=== PATIENT | female | born 1970 ===

== ENCOUNTER 2016-10-24 12:10 | Emergency (ER) | payer MEDICAID ==
[2016-10-24 12:23] VITALS: O2SAT 100
[2016-10-24] MEDS ORDERED: Bacitracin 500 Units/gm Oint Foilpak UD TOP ONE (12:33)
[2016-10-24] MEDS ORDERED: Bacitracin 500 Units/gm Oint Foilpak UD ONE (12:54)
--- NOTE | 2016-10-24 13:10 | C.PDOC ---
History Of Present Illness 46 yr old female presents to the ER for pain to the left hand for 1 day. Patient states she was playing with her dog when she pulled her hand away and hit it against the wall. Reports of a abrasion to the 4th knuckle and reports hitting her pinky. Patient reports of pain to the entire hand due to the carpal tunnel syndrome. Patient denies arm pain, shoulder pain, back pain, weakness or numbness. Time Seen by Provider: 10/24/16 12:58 Chief Complaint (Nursing): Upper Extremity Problem/Injury History Per: Patient History/Exam Limitations: no limitations Onset/Duration Of Symptoms: Days (1) Current Symptoms Are (Timing): Still Present Past Medical History Reviewed: Historical Data, Nursing Documentation, Vital Signs Vital Signs: Last Vital Signs Temp 97.3 F L 10/24/16 12:22 Pulse 80 10/24/16 12:22 Resp 16 10/24/16 12:22 BP 193/133 H 10/24/16 12:22 Pulse Ox 100 10/24/16 13:25 - Medical History PMH: Anxiety, Arthritis, Asthma, Back Problems (sciatica), Depression, Fractures (left foot fracture 2007), Gastritis, HTN, Pneumonia, Rheumatoid Arthritis - [facility] Procedures ANESTH INJECT-SPIN CANAL (06/13/14) ESOPHAGOGASTRODUODENOSCOPY [EGD] W/CLOSED BIOPSY (01/11/15) INJECT STEROID (11/16/14) OTH REMOVE BOTH OVARIES/TUBES (11/06/12) OTHER AND UNSPECIFIED TOTAL ABDOMINAL HYSTERECTOMY (11/06/12) PACKED CELL TRANSFUSION (11/06/12) PLATELET TRANSFUSION (11/06/12) SPINAL CANAL INJECT NEC (11/16/14) Family History: States: No Known Family Hx - Social History Hx Tobacco Use: No Hx Alcohol Use: No (socially) Hx Substance Use: Yes (marijuana) - Immunization History Hx Tetanus Toxoid Vaccination: No Hx Influenza Vaccination: No Hx Pneumococcal Vaccination: Yes Review Of Systems Except As Marked, All Systems Reviewed And Found Negative. Musculoskeletal: Positive for: Hand Pain (Left hand pain. Abrasion to the 4th knuckle. ). Negative for: Shoulder Pain, Arm Pain, Back Pain Neurological: Negative for: Weakness, Numbness Physical Exam - Physical Exam Appears: Well, Non-toxic, No Acute Distress Skin: Warm, Dry Head: Atraumatic, Normacephalic Oral Mucosa: Moist Chest: Symmetrical, No Tenderness Cardiovascular: Rhythm Regular, No Murmur Extremity: Swelling (Left Hand - Swelling to the 5th finger), Other (Left Hand - Abrasion to the PIP of 4th digit. ) Neurological/Psych: Oriented x3, Normal Speech, Normal Motor ED Course And Treatment O2 Sat by Pulse Oximetry: 100 - Other Rad X-Ray - Left Hand X-Ray: Viewed By Me, Read By Radiologist Interpretation: PROCEDURE: Left Hand Radiographs. HISTORY: Contusion. COMPARISON: None available. FINDINGS: BONES: Acute displaced fracture deformity of the proximal aspect distal 5th phalanx with intra-articular extension. Well corticated small rounded ossific density likely related to remote ulna styloid fracture. Remainder of the visualized osseous structures appear intact. JOINTS: No dislocation. SOFT TISSUES: Soft tissue swelling. No evidence of radiopaque foreign body. OTHER FINDINGS: None. IMPRESSION: Soft tissue swelling. Acute displaced fracture deformity of the proximal aspect distal 5th phalanx with intra-articular extension. Well corticated small rounded ossific density likely related to remote ulna styloid fracture. Medical Decision Making Medical Decision Making: PLAN: * X-Ray - Left Hand * Bacitracin TOP * Motrin PO * Tylenol PO Disposition Counseled Patient/Family Regarding: Studies Performed, Diagnosis, Need For Followup, Rx Given - Disposition Referrals: [facility] [Outside] Disposition: HOME/ ROUTINE Disposition Time: 13:23 Condition: STABLE Prescriptions: Ibuprofen [Motrin] 600 mg PO TID #15 tab Instructions: Finger Fracture (ED) Forms: General Discharge Instructions - POA Present On Arrival: None - Clinical Impression Clinical Impression: Finger fracture - Scribe Statement The provider has reviewed the documentation as recorded by the Giovanniibe Nikkie Pope Provider Attestation: All medical record entries made by the Giovanniibe were at my direction and personally dictated by me. I have reviewed the chart and agree that the record accurately reflects my personal performance of the history, physical exam, medical decision making, and the department course for this patient. I have also personally directed, reviewed, and agree with the discharge instructions and disposition.
--- NOTE | 2016-10-24 13:18 | RAD ---
PROCEDURE: Left Hand Radiographs. HISTORY: Contusion COMPARISON: None available. FINDINGS: BONES: Acute displaced fracture deformity of the proximal aspect distal 5th phalanx with intra-articular extension. Well corticated small rounded ossific density likely related to remote ulna styloid fracture. Remainder of the visualized osseous structures appear intact. JOINTS: No dislocation. SOFT TISSUES: Soft tissue swelling. No evidence of radiopaque foreign body. OTHER FINDINGS: None. IMPRESSION: Soft tissue swelling. Acute displaced fracture deformity of the proximal aspect distal 5th phalanx with intra-articular extension. Well corticated small rounded ossific density likely related to remote ulna styloid fracture.
[2016-10-24 13:59] VITALS: BP 172/105; PULSE 85; RESP 18; TEMP 99
== END 2016-10-24 13:59 | disposition home or self-care (01) ==
LOC: C.ER 12:10
DX: S62.617A Displaced fracture of proximal phalanx of left little finger, initial encounter for closed fracture (principal); W22.8XXA Striking against or struck by other objects, initial encounter

== ENCOUNTER 2017-01-08 08:30 | Emergency (ER) | payer MEDICAID, OTHER ==
[2017-01-08 08:49] VITALS: TEMP 98.6
--- NOTE | 2017-01-08 10:15 | C.PDOC ---
History Of Present Illness 46-year-old female, PMHx includes Anxiety, Arthritis, Asthma, Back Problems ( sciatica), Depression, Fractures (left foot fracture 2007), Gastritis, HTN, Hypercholesterolemia, Migraine, Pneumonia, and Rheumatoid Arthritis, presents to the emergency department with complaints of anterior chest wall pain to right side. Patient states she was mopping her house two days ago, which she believes may have been the cause of pain. Denies nausea/vomiting, fevers, chills , numbness/weakness, or any other associated symptoms. No other complaints at this time. Time Seen by Provider: 01/08/17 08:44 Chief Complaint (Nursing): Pain, Chronic History Per: Patient History/Exam Limitations: no limitations Onset/Duration Of Symptoms: Days Current Symptoms Are (Timing): Still Present Severity: Moderate Past Medical History Reviewed: Historical Data, Nursing Documentation, Vital Signs Vital Signs: Last Vital Signs Temp 98.6 F 01/08/17 08:38 Pulse 57 L 01/08/17 13:21 Resp 20 01/08/17 13:21 BP 143/54 L 01/08/17 13:21 Pulse Ox 100 01/08/17 13:21 - Medical History PMH: Anxiety, Arthritis, Asthma, Back Problems (sciatica), Depression, Fractures (left foot fracture 2007), Gastritis, HTN, Hypercholesterolemia, Migraine, Pneumonia, Rheumatoid Arthritis - [facility] Procedures ANESTH INJECT-SPIN CANAL (06/13/14) ESOPHAGOGASTRODUODENOSCOPY [EGD] W/CLOSED BIOPSY (01/11/15) INJECT STEROID (11/16/14) OTH REMOVE BOTH OVARIES/TUBES (11/06/12) OTHER AND UNSPECIFIED TOTAL ABDOMINAL HYSTERECTOMY (11/06/12) PACKED CELL TRANSFUSION (11/06/12) PLATELET TRANSFUSION (11/06/12) SPINAL CANAL INJECT NEC (11/16/14) Family History: States: No Known Family Hx - Social History Hx Tobacco Use: No Hx Alcohol Use: No (socially) Hx Substance Use: Yes (marijuana) - Immunization History Hx Tetanus Toxoid Vaccination: No Hx Influenza Vaccination: No Hx Pneumococcal Vaccination: Yes Review Of Systems Except As Marked, All Systems Reviewed And Found Negative. Constitutional: Negative for: Fever Cardiovascular: Positive for: Chest Pain. Negative for: Palpitations Respiratory: Negative for: Shortness of Breath Gastrointestinal: Positive for: Nausea Musculoskeletal: Negative for: Neck Pain, Back Pain Neurological: Negative for: Weakness, Numbness, Headache, Dizziness Psych: Positive for: Anxiety Physical Exam - Physical Exam Appears: Non-toxic, No Acute Distress, Other (appears anxious, tearful.) Skin: Warm, Dry, No Rash Head: Atraumatic, Normacephalic Eye(s): bilateral: Normal Inspection, PERRL, EOMI Nose: Normal Oral Mucosa: Moist Lips: Normal Appearing Neck: Normal ROM Chest: Tenderness (anterior right chest wall) Cardiovascular: Rhythm Regular, No Murmur Respiratory: Normal Breath Sounds, No Accessory Muscle Use Gastrointestinal/Abdominal: Soft, No Tenderness Extremity: Normal ROM Neurological/Psych: Oriented x3, Normal Speech ED Course And Treatment O2 Sat by Pulse Oximetry: 98 Disposition Counseled Patient/Family Regarding: Studies Performed, Diagnosis, Need For Followup, Rx Given - Disposition Disposition: HOME/ ROUTINE Disposition Time: 14:17 Condition: FAIR Additional Instructions: Use warm compresses to affected area. Take medications as indicated. Follow up with your doctor as needed. Prescriptions: Ibuprofen [Motrin] 600 mg PO TID #15 tab traMADol/Acetaminophen [Ultracet 37.5/325 mg] 1 tab PO TID PRN #15 tab PRN Reason: pain Instructions: Chest Wall Pain (ED) Forms: General Discharge Instructions - POA Present On Arrival: None - Clinical Impression Clinical Impression: Acute chest wall pain - Scribe Statement The provider has reviewed the documentation as recorded by the Scribe (Shellie Mcduffie) All medical record entries made by the Scribe were at my direction and personally dictated by me. I have reviewed the chart and agree that the record accurately reflects my personal performance of the history, physical exam, medical decision making, and the department course for this patient. I have also personally directed, reviewed, and agree with the discharge instructions and disposition.
--- NOTE | 2017-01-08 10:17 | RAD ---
HISTORY: pain COMPARISON: Chest x-ray performed 02/15/16 TECHNIQUE: Chest, one view. FINDINGS: Examination limited by habitus, patient obliquity, and hypoinflation. LUNGS: No focal consolidation. Please note that chest x-ray has limited sensitivity for the detection of pulmonary masses. PLEURA: No significant pleural effusion identified. No definite pneumothorax . CARDIOVASCULAR: The cardiomediastinal silhouette appears within normal limits of size. OSSEOUS STRUCTURES: No acute osseous abnormality identified. VISUALIZED UPPER ABDOMEN: Unremarkable. OTHER FINDINGS: None. IMPRESSION: No focal consolidation, significant pleural effusion, or definite pneumothorax identified.
[2017-01-08 13:22] VITALS: BP 143/54; PULSE 57; RESP 20
[2017-01-08 14:20] VITALS: O2SAT 98
--- NOTE | 2017-01-10 07:10 | CARD ---
APPROVED REPORT EKG Measurement Heart [id number] <Conclusion> Normal sinus rhythm Nonspecific T wave abnormality Abnormal ECG
== END 2017-01-08 14:36 | disposition home or self-care (01) ==
LOC: C.ER 08:30
DX: R07.89 Other chest pain (principal)

== ENCOUNTER 2017-03-24 10:34 | Emergency (ER) | payer MEDICAID, OTHER ==
[2017-03-24 11:32] VITALS: O2SAT 99
[2017-03-24] MEDS ORDERED: Belladonna-Phenobarbital PO STA (11:32)
[2017-03-24] MEDS ORDERED: Sodium Chloride 0.9% 1,000 ML IV ONE (11:32)
[2017-03-24] MEDS ORDERED: Belladonna-Phenobarbital ONE (11:41)
[2017-03-24 11:42] LABS: BASO % 0.6 % (0.0-2.0); EOS # 0.4 K/uL (0.0-0.7); EOS % 6.7 % (0.0-4.0); HEMATOCRIT 42.8 % (34.0-47.0); LYMPH % 18.2 % (20.0-40.0); MEAN CELL VOLUME 80.3 fL (81.0-99.0); MEAN CORPUSCULAR HEMOGLOBIN 26.5 pg (27.0-31.0); MONO # 0.4 K/uL (0.0-0.8); MONO % 8.2 % (0.0-10.0); RED CELL DISTRIBUTION WIDTH 16.1 % (11.5-14.5); WHITE BLOOD COUNT 5.5 K/uL (4.8-10.8)
[2017-03-24] MEDS ORDERED: Aluminum Hydroxide/Magnesium Hydroxide Susp (30 mL) ONE (11:42)
[2017-03-24 12:09] LABS: ALB/GLOB RATIO 1.3 (1.0-2.1); BILIRUBIN,TOTAL 0.7 mg/dL (0.2-1.3); CALCIUM 9.6 mg/dl (8.6-10.4); POTASSIUM 3.3 mmol/L (3.6-5.2); TOTAL PROTEIN 7.2 g/dL (6.3-8.3)
--- NOTE | 2017-03-24 12:26 | C.PDOC ---
History Of Present Illness 47 y/o female with Hx of HTN, Asthma, Sciatica and Anxiety presents to ED with complaints of vomiting for 2 days and nausea with associated vomiting and back pain. Patient also complaints of headache, mild cough and reports x6 episodes of vomiting today. Patient denies fever, dysuria, frequency, incontinence or any other complaints at this time. PMD Time Seen by Provider: 03/24/17 11:26 Chief Complaint (Nursing): Dizziness/Lightheaded History Per: Patient History/Exam Limitations: no limitations Onset/Duration Of Symptoms: Days Current Symptoms Are (Timing): Still Present Past Medical History Reviewed: Historical Data, Nursing Documentation, Vital Signs Vital Signs: Last Vital Signs Temp 98.3 F 03/24/17 11:10 Pulse 58 L 03/24/17 14:10 Resp 18 03/24/17 14:10 BP 201/111 H 03/24/17 14:10 Pulse Ox 99 03/24/17 14:10 - Medical History PMH: Anxiety, Arthritis, Asthma, Back Problems (sciatica), Depression, Fractures (left foot fracture 2007), Gastritis, HTN, Hypercholesterolemia, Migraine, Pneumonia, Rheumatoid Arthritis Surgical History: No Surg Hx - [facility] Procedures ANESTH INJECT-SPIN CANAL (06/13/14) ESOPHAGOGASTRODUODENOSCOPY [EGD] W/CLOSED BIOPSY (01/11/15) INJECT STEROID (11/16/14) OTH REMOVE BOTH OVARIES/TUBES (11/06/12) OTHER AND UNSPECIFIED TOTAL ABDOMINAL HYSTERECTOMY (11/06/12) PACKED CELL TRANSFUSION (11/06/12) PLATELET TRANSFUSION (11/06/12) SPINAL CANAL INJECT NEC (11/16/14) Family History: States: No Known Family Hx - Social History Hx Tobacco Use: No Hx Alcohol Use: No (socially) Hx Substance Use: Yes (marijuana) - Immunization History Hx Tetanus Toxoid Vaccination: No Hx Influenza Vaccination: No Hx Pneumococcal Vaccination: Yes Review Of Systems Except As Marked, All Systems Reviewed And Found Negative. Constitutional: Positive for: Chills. Negative for: Fever Respiratory: Positive for: Cough Gastrointestinal: Positive for: Nausea, Vomiting Musculoskeletal: Positive for: Back Pain Skin: Negative for: Rash Neurological: Positive for: Headache Physical Exam - Physical Exam Appears: Non-toxic, Other (Anxious, Hyperventilating) Skin: Normal Color, Warm, Dry, No Rash Head: Atraumatic, Normacephalic Eye(s): bilateral: Normal Inspection Oral Mucosa: Moist Neck: Normal ROM, Supple Chest: Symmetrical Cardiovascular: Rhythm Regular, No Murmur Respiratory: Normal Breath Sounds, No Rales, No Rhonchi, No Wheezing Gastrointestinal/Abdominal: Tenderness (To RUQ), No Guarding, No Rebound Back: No CVA Tenderness, No Paraspinal Tenderness Neurological/Psych: Oriented x3 ED Course And Treatment - Laboratory Results Result Diagrams: 03/24/17 11:37 03/24/17 11:37 ECG: Interpreted By Me, Viewed By Me ECG Rhythm: Sinus Rhythm, Nonspecific Changes ECG Interpretation: Normal Rate From EC (bpm) O2 Sat by Pulse Oximetry: 99 (RA) Pulse Ox Interpretation: Normal Medical Decision Making Medical Decision Making: Patient still hypertensive, no head ache, no dizziness. Pain is better, no vomiting, tolerating PO, requesting discharge. Disposition - Disposition Referrals: [facility] [Outside] Disposition: HOME/ ROUTINE Disposition Time: 15:32 Condition: IMPROVED Prescriptions: Ondansetron [Zofran Odt] 1 odt PO BID PRN #6 odt PRN Reason: .nausea vomiting Instructions: Gastritis (ED) Forms: General Discharge Instructions - POA Present On Arrival: None - Clinical Impression Clinical Impression: Gastritis - Scribe Statement The provider has reviewed the documentation as recorded by the Scriblenny Espinoza All medical record entries made by the Scribe were at my direction and personally dictated by me. I have reviewed the chart and agree that the record accurately reflects my personal performance of the history, physical exam, medical decision making, and the department course for this patient. I have also personally directed, reviewed, and agree with the discharge instructions and disposition.
[2017-03-24] MEDS: Aluminum Hydroxide/Magnesium Hydroxide Susp (30 mL) PO STA ×2 (12:44→12:45)
--- NOTE | 2017-03-24 13:24 | US ---
Right upper quadrant abdominal ultrasound History: Abdominal pain. Vomiting. Comparison: None available. Technique: Real-time sonography was performed through the right upper quadrant of the abdomen. Findings: Liver: 14.7 centimeters in length. Normal echogenicity of the hepatic parenchyma. Gallbladder appears preserved. No calculi or sludge. Normal wall thickness of 2 millimeters. Negative sonographic Dixon's sign. Common bile duct measures 4.2 millimeters, within normal limits. Visualized portions of the pancreas are preserved. Pancreatic tail not well visualized. Visualized aorta and IVC are preserved. Right kidney: 10.1 x 4.0 x 4.4 centimeters. Mild increased echogenicity of the right renal cortex suggestive for medical renal disease. No calculi or hydronephrosis. Impression: Mild increased echogenicity of the right renal parenchymal cortex suggestive for medical renal disease. Clinical correlation. Limited visualization of the pancreas.
--- NOTE | 2017-03-24 13:25 | RAD ---
PROCEDURE: CHEST RADIOGRAPH, 1 VIEW HISTORY: Abdominal pain COMPARISON: 01/08/2017 FINDINGS: LUNGS: Clear. PLEURA: No pneumothorax or pleural fluid seen. CARDIOVASCULAR: Normal. OSSEOUS STRUCTURES: No significant abnormalities. VISUALIZED UPPER ABDOMEN: Normal. OTHER FINDINGS: None. IMPRESSION: No active disease.
[2017-03-24 13:30] LABS: RBC URINE 7 /hpf (0-3); URINE BACTERIA RARE (<OCC); URINE BILIRUBIN NEGATIVE (NEGATIVE); URINE BLOOD 1+ (NEGATIVE); URINE COLOR Yellow (YELLOW); URINE GLUCOSE (UA) NORMAL (Normal); URINE KETONE 1+ mg/dL (NEGATIVE); URINE LEUKOCYTE ESTERASE 1+ Leu/uL (Negative); URINE PROTEIN 2+ mg/dL (NEGATIVE); URINE UROBILINOGEN NORMAL mg/dL (0.2-1.0); WBC URINE 5 /hpf (0-5)
[2017-03-24] MEDS ORDERED: Lidocaine 5% Patch TD STA (14:37)
[2017-03-24] MEDS ORDERED: Lidocaine 5% Patch TD ONE (14:45)
[2017-03-24 15:37] VITALS: BP 200/110; PULSE 56; RESP 22; TEMP 98.1
--- NOTE | 2017-03-25 14:53 | CARD ---
APPROVED REPORT EKG Measurement Heart [id number] HI [id number] <Conclusion> Normal sinus rhythm Nonspecific ST and T wave abnormality Abnormal ECG
== END 2017-03-24 15:56 | disposition home or self-care (01) ==
LOC: C.ER 10:34
DX: K29.70 Gastritis, unspecified, without bleeding (principal); I10 Essential (primary) hypertension; E78.00 Pure hypercholesterolemia, unspecified; F17.210 Nicotine dependence, cigarettes, uncomplicated
CPT/HCPCS: 71010; 76705; 80053; 80324; 80345; 80346; 80349; 80353; 80358; 80361; 81001; 83992; 84703; 85025; 93005; 96361; 96374; 96375; 99285; J1885; J2405; J7040

== ENCOUNTER 2017-12-06 07:24 | Emergency (ER) | payer MEDICAID, OTHER ==
[2017-12-06 08:12] LABS: BASO # 0.1 K/uL (0.0-0.2); EOS # 0.5 K/uL (0.0-0.7); EOS % 8.7 % (0.0-4.0); LYMPH # 1.3 K/uL (1.0-4.3); LYMPH % 20.7 % (20.0-40.0); MEAN CELL VOLUME 81.6 fL (81.0-99.0); MEAN CORPUSCULAR HEMOGLOBIN 27.6 pg (27.0-31.0); MEAN CORPUSCULAR HGB CONC 33.8 g/dL (33.0-37.0); MEAN PLATELET VOLUME 10.7 fL (7.2-11.7); MONO # 0.4 K/uL (0.0-0.8); MONO % 5.9 % (0.0-10.0); NEUT # 3.9 K/uL (1.8-7.0); NEUT % 63.7 % (50.0-75.0); NRBC % 0.2 % (0.0-2.0); RBC 4.58 Mil/uL (3.80-5.20); RED CELL DISTRIBUTION WIDTH 14.4 % (11.5-14.5); WHITE BLOOD COUNT 6.2 K/uL (4.8-10.8)
[2017-12-06 08:18] LABS: HEMOGLOBIN 12.6 g/dL (11.0-16.0)
--- NOTE | 2017-12-06 08:21 | RAD ---
Chest x-ray single frontal view History: Chest pain. Comparison: 03/24/2017 Findings: Mild venous congestion. Small nodular density in right midlung zone laterally. Bilateral hilar prominence. Tortuous aorta. Top normal heart size. Degenerative changes in the spine and shoulders. Impression: Mild venous congestion. Small nodular density in right midlung zone laterally. Bilateral hilar prominence. Tortuous aorta. Top normal heart size.
[2017-12-06 08:24] LABS: BLOOD UREA NITROGEN 22 mg/dL (7-17); CALCIUM 8.8 mg/dl (8.6-10.4); GFR AFRICAN-AMERICAN 59; GFR NON-AFRICAN AMERICAN 48
[2017-12-06 08:37] LABS: B-TYPE NATRIURETIC PEPTIDE 283 pg/mL (0-450)
[2017-12-06] MEDS ORDERED: Lidocaine 5% Patch TD STA (08:54)
[2017-12-06] MEDS ORDERED: Lidocaine 5% Patch TD ONE (09:00)
--- NOTE | 2017-12-06 09:18 | C.PDOC ---
History Of Present Illness 47 y/o female with a history of HTN, anxiety, and asthma presents to the ED for left arm and left sided chest pain. Patient reports the pain began 3 days ago getting progressively worse. She denies taking any pain medications but did use marijuana. She complains the pain is worse with movement and when she takes deep breaths. Last night she couldn't sleep and felt a pulling inside the left part of her chest. EMS gave Nitro prior to ED arrival. Denies any nausea, vomiting, fever, chills, abdominal pain, constipation, or SOB. Of note, patient is s/p stroke with left sided deficit and a history of chronic pain. She was on Percocet for many years. Denies taking it recently at this time. Patient also states she had a herniated disc in neck and back. PMD: Dr. Morales Time Seen by Provider: 12/06/17 07:36 Chief Complaint (Nursing): Chest Pain History Per: Patient History/Exam Limitations: no limitations Onset/Duration Of Symptoms: Days (x3) Current Symptoms Are (Timing): Still Present Quality: "Pain" Recent travel outside of the [place]: No Past Medical History Vital Signs: Last Vital Signs Temp 98.2 F 12/06/17 17:16 Pulse 70 12/06/17 17:16 Resp 18 12/06/17 17:16 BP 172/106 H 12/06/17 17:16 Pulse Ox 100 12/06/17 17:16 - Medical History PMH: Anxiety, Arthritis, Asthma, Back Problems (sciatica), Depression, Fractures (left foot fracture 2007), Gastritis, HTN, Hypercholesterolemia, Migraine, Pneumonia, Rheumatoid Arthritis Denies: Anemia, Diabetes, Hepatitis, Chronic Kidney Disease, Sexually Transmitted Disease Other PMH: sciatica Surgical History: Denies: Appendectomy, Cholecystectomy - [facility] Procedures ANESTH INJECT-SPIN CANAL (06/13/14) ESOPHAGOGASTRODUODENOSCOPY [EGD] W/CLOSED BIOPSY (01/11/15) INJECT STEROID (11/16/14) OTH REMOVE BOTH OVARIES/TUBES (11/06/12) OTHER AND UNSPECIFIED TOTAL ABDOMINAL HYSTERECTOMY (11/06/12) PACKED CELL TRANSFUSION (11/06/12) PLATELET TRANSFUSION (11/06/12) SPINAL CANAL INJECT NEC (11/16/14) Family History: States: Unknown Family Hx - Social History Hx Tobacco Use: Yes Hx Alcohol Use: No (socially) Hx Substance Use: Yes (marijuana) - Immunization History Hx Tetanus Toxoid Vaccination: No Hx Influenza Vaccination: No Hx Pneumococcal Vaccination: Yes Review Of Systems Except As Marked, All Systems Reviewed And Found Negative. Constitutional: Negative for: Fever, Chills Cardiovascular: Positive for: Chest Pain Respiratory: Negative for: Shortness of Breath Gastrointestinal: Negative for: Nausea, Vomiting, Abdominal Pain, Constipation Musculoskeletal: Positive for: Arm Pain (left) Physical Exam - Physical Exam Appears: Non-toxic, No Acute Distress (tearful and anxious appearing) Skin: Normal Color, Warm, Dry Head: Atraumatic, Normacephalic Eye(s): bilateral: Normal Inspection, PERRL, EOMI Neck: Normal Chest: Other (reproducable chest wall pain) Cardiovascular: Rhythm Regular, No Murmur Respiratory: Normal Breath Sounds Gastrointestinal/Abdominal: Normal Exam, Soft, No Tenderness, No Distention Back: Normal Inspection Extremity: Tenderness (pain to the left upper extremity with movement), No Pedal Edema Neurological/Psych: Oriented x3 ED Course And Treatment - Laboratory Results Result Diagrams: 12/06/17 08:09 12/06/17 08:09 ECG: Interpreted By Me, Viewed By Me ECG Rhythm: Sinus Rhythm (normal) Interpretation Of ECG: normal sinus rhythm, [address] elevations or depressions Rate From EC O2 Sat by Pulse Oximetry: 99 (RA) Pulse Ox Interpretation: Normal Medical Decision Making Medical Decision Making: Time: 07:31 Impression: Anxiety/Chest Pain/Possibly musculoskeletal Initial Plan: * EKG * Drug Screen * Tylenol 975 mg PO * Motrin 600 mg PO * Lidocaine 1 ea TD * Ativan 1 mg PO once * Cozaar 50mg PO * Urinalysis * B-Type Natriuretic * BMP * Troponin I Stat * CBC * Chest X-Ray * Patient refused pain medication in the ED, accepted ativan for anxiety. Patient slept comfortably. Persistently hypertensive. Not compliant with her BP meds. Feeling better, will d/c Scribe Attestation: Documented by Anaya Nice acting as a scribe Sujatha Campa MD. MD Mena Attestation: All medical record entries made by the Scribe were at my direction and personally dictated by me. I have reviewed the chart and agree that the record accurately reflects my personal performance of the history, physical exam, medical decision making, and the department course for this patient. I have also personally directed, reviewed, and agree with the discharge instructions and disposition. Disposition Counseled Patient/Family Regarding: Studies Performed, Diagnosis - Disposition Referrals: [facility] at [facility] [Outside] Disposition: HOME/ ROUTINE Disposition Time: 17:07 Condition: IMPROVED Instructions: High Blood Pressure in Adults, Low Salt Diet Forms: [facility] (Irish), General Discharge Instructions - POA Present On Arrival: Blood Incompatibility - Clinical Impression Clinical Impression: Pain of left side of body, Hypertension
[2017-12-06 09:32] LABS: SQUAMOUS EPITHIAL < 1 /hpf (0-5); URINE BILIRUBIN NEGATIVE (NEGATIVE); URINE BLOOD 1+ (NEGATIVE); URINE CLARITY Clear (Clear); URINE COLOR Yellow (YELLOW); URINE GLUCOSE (UA) NORMAL (Normal); URINE LEUKOCYTE ESTERASE NEG Leu/uL (Negative); URINE PROTEIN NEGATIVE (NEGATIVE); URINE UROBILINOGEN NORMAL mg/dL (0.2-1.0)
[2017-12-06 09:46] LABS: BARBITURATES, UR NEGATIVE (NEGATIVE); BENZODIAZEPINES, UR NEGATIVE (NEGATIVE); OPIATES, UR NEGATIVE (NEGATIVE); PHENCYCLIDINE, UR NEGATIVE (NEGATIVE)
[2017-12-06 16:01] VITALS: RESP 18
[2017-12-06 17:17] VITALS: BP 172/106; PULSE 70; TEMP 98.2
[2017-12-06 18:22] VITALS: O2SAT 99
--- NOTE | 2017-12-09 13:45 | CARD ---
APPROVED REPORT EKG Measurement Heart [id number] <Conclusion> Normal sinus rhythm Nonspecific T wave abnormality Abnormal ECG
== END 2017-12-06 18:00 | disposition home or self-care (01) ==
LOC: C.ER 07:24
DX: I10 Essential (primary) hypertension (principal); R52 Pain, unspecified; E78.00 Pure hypercholesterolemia, unspecified; M06.9 Rheumatoid arthritis, unspecified; Z72.0 Tobacco use
CPT/HCPCS: 71045; 80048; 80324; 80345; 80346; 80349; 80353; 80358; 80361; 81001; 83880; 83992; 84484; 85025; 96374; 99285; J0360

== ENCOUNTER 2018-05-01 13:44 | Emergency (ER) | payer MEDICAID, OTHER ==
[2018-05-01] MEDS ORDERED: Sodium Chloride 0.9% 1,000 ML IV ONE (13:50)
--- NOTE | 2018-05-01 13:50 | C.PDOC ---
History Of Present Illness 48-year-old female with a history of anxiety and hysterectomy presents to the ED for evaluation of constant 10/10 worsening suprabubic pain associated with chills for 1 day. Patient reports the pain is worse towards the left lower a bdomen, 10/0 pain, and worsened this morning which prompted ED visit. Admits to smoking marijuana for the pain, last bowel movement was this morning, and was last sexually active 8 months ago. Denies fever, nausea, vomiting, constipation, and any other associated symptoms. Time Seen by Provider: 05/01/18 13:46 Chief Complaint (Nursing): Abdominal Pain History Per: Patient History/Exam Limitations: no limitations Onset/Duration Of Symptoms: Days Current Symptoms Are (Timing): Still Present Past Medical History Reviewed: Historical Data, Nursing Documentation, Vital Signs - Medical History PMH: Anxiety, Arthritis, Asthma, Back Problems (sciatica), Depression, Fractures (left foot fracture 2007), Gastritis, HTN, Hypercholesterolemia, Migraine, Pneumonia, Rheumatoid Arthritis Denies: Anemia, Diabetes, Hepatitis, Chronic Kidney Disease, Sexually Transmitted Disease Surgical History: Denies: Appendectomy, Cholecystectomy - [facility] Procedures ANESTH INJECT-SPIN CANAL (06/13/14) ESOPHAGOGASTRODUODENOSCOPY [EGD] W/CLOSED BIOPSY (01/11/15) INJECT STEROID (11/16/14) OTH REMOVE BOTH OVARIES/TUBES (11/06/12) OTHER AND UNSPECIFIED TOTAL ABDOMINAL HYSTERECTOMY (11/06/12) PACKED CELL TRANSFUSION (11/06/12) PLATELET TRANSFUSION (11/06/12) SPINAL CANAL INJECT NEC (11/16/14) Family History: States: Unknown Family Hx - Social History Hx Tobacco Use: Yes Hx Alcohol Use: No (socially) Hx Substance Use: Yes (marijuana) - Immunization History Hx Tetanus Toxoid Vaccination: No Hx Influenza Vaccination: No Hx Pneumococcal Vaccination: Yes Review Of Systems Except As Marked, All Systems Reviewed And Found Negative. Constitutional: Positive for: Chills. Negative for: Fever Gastrointestinal: Positive for: Abdominal Pain (suprapubic. worse towards the left side. ). Negative for: Nausea, Vomiting, Diarrhea Physical Exam - Physical Exam Appears: Non-toxic, Other (tearful) Skin: Normal Color, Warm, Dry Head: Atraumatic, Normacephalic Eye(s): bilateral: Normal Inspection Oral Mucosa: Moist Cardiovascular: Rhythm Regular, No Murmur Respiratory: Normal Breath Sounds, No Rales, No Rhonchi, No Wheezing Gastrointestinal/Abdominal: Soft, Tenderness (LLQ), No Guarding, No Rebound Rectal: Tenderness (rectum), No Other (no impaction) Back: No CVA Tenderness Pelvic: No Vaginal Bleeding, Vaginal Discharge (white), No Cervical Motion Tenderness, No Adnexal Tenderness Extremity: Normal ROM Neurological/Psych: Oriented x3, Normal Speech, Other (anxious) ED Course And Treatment - Laboratory Results Result Diagrams: 05/01/18 14:28 05/01/18 14:28 O2 Sat by Pulse Oximetry: 96 (RA) Pulse Ox Interpretation: Normal - Other Rad Obstru. series X-Ray: Viewed By Me, Read By Radiologist Interpretation: COMPARISON: Chest x-ray performed 12/06/17. TECHNIQUE: AP radiograph of the chest, with upright and supine radiographs of the abdomen. FINDINGS: CHEST: Heart size appears within normal limits. Ectatic aorta. Probable faint atherosclerotic calcification of the aortic knob. No focal consolidation, significant pleural effusion, or definite pneumothorax identifi ed. Please note that chest x-ray has limited sensitivity for the detection of pulmonary masses. ABDOMEN AND PELVIS: Nonobstructive bowel gas pattern. Moderate constipation. No definite free air. No acute osseous abnormality is detected. IMPRESSION: Moderate constipation. Medical Decision Making Medical Decision Making: Plan: -Blood sent -Urinalysis -X-ray Obstructive Series -Morphine On re-eval, pt reports feeling better s/p Morphine. However, she reports some pain with movement. Abd & Pelvis CT ordered. Labs unremarkable, No UTI. Abx X Ray unremarkable except for stool. CT, no significant pathology. Patient treated for constipation. Moving her bowels in the ED. Disposition Counseled Patient/Family Regarding: Studies Performed, Diagnosis, Need For Followup, Rx Given - Disposition Referrals: [facility] [Outside] Disposition: HOME/ ROUTINE Disposition Time: 18:16 Condition: STABLE Additional Instructions: drink at least 32 onces of water a day. Follow up in clinic. Prescriptions: Phosphate Enema [Fleet Enema 135 Ml] 30 ml RC DAILY #3 nma Polyethylene Glycol 3350 [Miralax] 1 packet PO HS #30 packet Wheat Dextrin [Benefiber] 1 each PO DAILY #30 powd.pack Instructions: Constipation, Adult (DC) Forms: [employer] (Yi), General Discharge Instructions - POA Present On Arrival: None - Clinical Impression Clinical Impression: Constipation, Abdominal pain - Scribe Statement The provider has reviewed the documentation as recorded by the Scribe (Rosa Fajardo) Provider Attestation: All medical record entries made by the Scribe were at my direction and personally dictated by me. I have reviewed the chart and agree that the record accurately reflects my personal performance of the history, physical exam, medical decision making, and the department course for this patient. I have also personally directed, reviewed, and agree with the discharge instructions and disposition.
[2018-05-01 13:59] VITALS: RESP 18
[2018-05-01] MEDS ORDERED: Morphine 4 MG/ML VIAL ONE (14:21)
[2018-05-01] MEDS ORDERED: Sodium Chloride 0.9% 1,000 ML ONE (14:21)
[2018-05-01 14:31] LABS: BASO # 0.1 K/uL (0.0-0.2); BASO % 1.3 % (0.0-2.0); EOS # 0.6 K/uL (0.0-0.7); EOS % 8.4 % (0.0-4.0); HEMOGLOBIN 14.5 g/dL (11.0-16.0); LYMPH # 1.6 K/uL (1.0-4.3); LYMPH % 20.2 % (20.0-40.0); MEAN CELL VOLUME 82.2 fL (81.0-99.0); MEAN CORPUSCULAR HEMOGLOBIN 27.5 pg (27.0-31.0); MEAN CORPUSCULAR HGB CONC 33.4 g/dL (33.0-37.0); MEAN PLATELET VOLUME 10.6 fL (7.2-11.7); MONO # 0.5 K/uL (0.0-0.8); MONO % 6.1 % (0.0-10.0); NRBC % 0.1 % (0.0-2.0); RBC 5.29 Mil/uL (3.80-5.20); RED CELL DISTRIBUTION WIDTH 14.4 % (11.5-14.5); WHITE BLOOD COUNT 7.8 K/uL (4.8-10.8)
[2018-05-01 14:36] LABS: SQUAMOUS EPITHIAL 1 /hpf (0-5); URINE BILIRUBIN NEGATIVE (NEGATIVE); URINE BLOOD NEGATIVE (NEGATIVE); URINE CLARITY Clear (Clear); URINE COLOR Yellow (YELLOW); URINE GLUCOSE (UA) NORMAL (Normal); URINE LEUKOCYTE ESTERASE NEG Leu/uL (Negative); URINE PROTEIN 1+ mg/dL (NEGATIVE)
[2018-05-01 14:48] LABS: BARBITURATES, UR NEGATIVE (NEGATIVE); BENZODIAZEPINES, UR NEGATIVE (NEGATIVE); OPIATES, UR NEGATIVE (NEGATIVE); PHENCYCLIDINE, UR NEGATIVE (NEGATIVE)
[2018-05-01 15:15] LABS: ALB/GLOB RATIO 1.3 (1.0-2.1); ALBUMIN 4.4 g/dL (3.5-5.0); CALCIUM 10.1 mg/dl (8.6-10.4)
--- NOTE | 2018-05-01 15:36 | RAD ---
Date of service: 05/01/2018 PROCEDURE: Radiographs of the chest and abdomen (obstructive series) HISTORY: abd pain COMPARISON: Chest x-ray performed 12/06/17 TECHNIQUE: AP radiograph of the chest, with upright and supine radiographs of the abdomen. FINDINGS: CHEST: Heart size appears within normal limits. Ectatic aorta. Probable faint atherosclerotic calcification of the aortic knob. No focal consolidation, significant pleural effusion, or definite pneumothorax identified. Please note that chest x-ray has limited sensitivity for the detection of pulmonary masses. ABDOMEN AND PELVIS: Nonobstructive bowel gas pattern. Moderate constipation. No definite free air. No acute osseous abnormality is detected. IMPRESSION: Moderate constipation.
[2018-05-01] MEDS ORDERED: Magnesium Citrate Oral SOL (300 ml) PO ONE (16:18)
--- NOTE | 2018-05-01 17:13 | CT ---
PROCEDURE: CT Abdomen and Pelvis without Oral or IV contrast. HISTORY: abd pain COMPARISON: CT of the abdomen and pelvis performed 08/26/16 TECHNIQUE: Contiguous axial images of the abdomen and pelvis. No oral or IV contrast administered. Coronal and Sagittal reformats generated and reviewed. Radiation dose: Total exam DLP = 361.77 mGy-cm. This CT exam was performed using one or more of the following dose reduction techniques: Automated exposure control, adjustment of the mA and/or kV according to patient size, and/or use of iterative reconstruction technique. FINDINGS: There is limited evaluation of the solid organs without the administration of IV contrast. LOWER THORAX: No visible consolidation, pleural effusion, or pneumothorax. LIVER: Unremarkable unenhanced appearance. GALLBLADDER AND BILE DUCTS: Unremarkable unenhanced appearance. PANCREAS: Unremarkable unenhanced appearance. SPLEEN: Unremarkable unenhanced appearance. ADRENALS: Left adrenal gland hypertrophy. The right adrenal gland appears unremarkable. KIDNEYS AND URETERS: No hydronephrosis or obstructing renal calculus. BLADDER: The urinary bladder appears unremarkable. REPRODUCTIVE: Uterus is present. APPENDIX: The appendix appears within normal limits of caliber. No secondary signs of acute appendicitis. BOWEL: The stomach is nondistended. Lack of oral contrast limits evaluation for bowel pathology. The bowel loops appear within normal limits of caliber without evidence of intestinal obstruction. PERITONEUM: No significant free fluid. No definite free air. LYMPH NODES: Sub cm mesenteric lymph nodes, nonspecific. VASCULATURE: Minimal atherosclerotic changes. No aortic aneurysm. BONES: Degenerative changes of the spine, most pronounced at the L4-L5 level. Vacuum disc phenomenon at L5-S1.. OTHER FINDINGS: None. IMPRESSION: Left adrenal gland hypertrophy. Sub cm mesenteric lymph nodes, nonspecific.
[2018-05-01] MEDS ORDERED: Magnesium Citrate Oral SOL (300 ml) ONE (17:17)
[2018-05-01 18:25] VITALS: BP 166/92; PULSE 72; TEMP 97.7; O2SAT 100
== END 2018-05-01 18:25 | disposition home or self-care (01) ==
LOC: C.ER 13:44
DX: R10.9 Unspecified abdominal pain (principal); K59.00 Constipation, unspecified; I10 Essential (primary) hypertension; M06.9 Rheumatoid arthritis, unspecified; E78.00 Pure hypercholesterolemia, unspecified; Z72.0 Tobacco use
CPT/HCPCS: 74022; 74176; 80053; 80324; 80345; 80346; 80349; 80353; 80358; 80361; 81001; 83992; 85025; 96361; 96374; 99285; J2270; J7030

== ENCOUNTER 2018-08-26 10:35 | Emergency (ER) | payer MEDICAID, OTHER ==
--- NOTE | 2018-08-26 10:45 | C.PDOC ---
History Of Present Illness past medical history of CVA (2015), HTN, CHRONIC back pain, asthma, anxiety and depressioN. KNOWN MED NONCOMPLIANCE PER PRIOR RECORD. MRI 2017 +MULTIPLE DISC DISEASE Time Seen by Provider: 08/26/18 10:44 Past Medical History - Medical History PMH: Anxiety, Arthritis, Asthma, Back Problems (sciatica), Depression, Fractures (left foot fracture 2007), Gastritis, HTN, Hypercholesterolemia, Migraine, Pneumonia, Rheumatoid Arthritis Denies: Anemia, Diabetes, Hepatitis, Chronic Kidney Disease, Sexually Transmitted Disease Surgical History: Denies: Appendectomy, Cholecystectomy - [facility] Procedures ANESTH INJECT-SPIN CANAL (06/13/14) ESOPHAGOGASTRODUODENOSCOPY [EGD] W/CLOSED BIOPSY (01/11/15) INJECT STEROID (11/16/14) OTH REMOVE BOTH OVARIES/TUBES (11/06/12) OTHER AND UNSPECIFIED TOTAL ABDOMINAL HYSTERECTOMY (11/06/12) PACKED CELL TRANSFUSION (11/06/12) PLATELET TRANSFUSION (11/06/12) SPINAL CANAL INJECT NEC (11/16/14) Family History: States: Unknown Family Hx - Social History Hx Tobacco Use: Yes Hx Alcohol Use: No (socially) Hx Substance Use: Yes (marijuana) - Immunization History Hx Tetanus Toxoid Vaccination: No Hx Influenza Vaccination: No Hx Pneumococcal Vaccination: Yes Progress - Data Reviewed Data Reviewed: Old records
[2018-08-26 10:59] VITALS: RESP 24
[2018-08-26 11:33] LABS: BASO # 0.1 K/uL (0.0-0.2); EOS # 0.6 K/uL (0.0-0.7); EOS % 8.9 % (0.0-4.0); HEMOGLOBIN 13.5 g/dL (11.0-16.0); LYMPH # 0.6 K/uL (1.0-4.3); LYMPH % 8.9 % (20.0-40.0); MEAN CELL VOLUME 83.4 fL (81.0-99.0); MEAN CORPUSCULAR HEMOGLOBIN 27.3 pg (27.0-31.0); MEAN CORPUSCULAR HGB CONC 32.7 g/dL (33.0-37.0); MEAN PLATELET VOLUME 10.2 fL (7.2-11.7); MONO # 0.6 K/uL (0.0-0.8); MONO % 8.2 % (0.0-10.0); NRBC % 0.1 % (0.0-2.0); PLATELET COUNT 208 K/uL (130-400); RBC 4.95 Mil/uL (3.80-5.20); WHITE BLOOD COUNT 6.8 K/uL (4.8-10.8)
[2018-08-26 11:56] LABS: ALB/GLOB RATIO 1.3 (1.0-2.1); ALBUMIN 4.2 g/dL (3.5-5.0); ALT/SGPT 27 U/L (9-52); AST/SGOT 39 U/L (14-36); BLOOD UREA NITROGEN 28 mg/dL (7-17); CALCIUM 9.5 mg/dl (8.6-10.4); GFR NON-AFRICAN AMERICAN 28
[2018-08-26 12:04] LABS: EOSINOPHIL 2 % (0-4); LYMPHOCYTE 12 % (20-40); MONOCYTE 1 % (0-10); NEUTROPHIL 85 % (50-75); PLATELET ESTIMATE NORMAL (NORMAL); TOTAL CELLS COUNTED 100
--- NOTE | 2018-08-26 13:18 | CT ---
Date of service: 08/26/2018 PROCEDURE: CT HEAD WITHOUT CONTRAST. HISTORY: Headache, elevated HTN COMPARISON: 09/29/2017 TECHNIQUE: Axial computed tomography images were obtained through the head/brain without intravenous contrast. Radiation dose: Total exam DLP = 1088.23 mGy-cm. This CT exam was performed using one or more of the following dose reduction techniques: Automated exposure control, adjustment of the mA and/or kV according to patient size, and/or use of iterative reconstruction technique. FINDINGS: HEMORRHAGE: No intracranial hemorrhage. BRAIN: There are mild chronic microangiopathic changes. There are old lacunar infarctions in the right basal ganglia and left anterior limb of internal capsule. There is no mass, mass effect or abnormal extra-axial fluid collection. There is no territorial infarction. The midline sagittal structures are normal. VENTRICLES: The ventricles are normal in size, shape and configuration. CALVARIUM: There is no calvarial fracture or extracranial soft tissue swelling. PARANASAL SINUSES: Predominantly clear. MASTOID AIR CELLS: Predominantly clear. OTHER FINDINGS: None. IMPRESSION: No acute intracranial abnormality. Mild chronic microangiopathic changes and old lacunar infarctions in the right basal ganglia and left anterior limb of internal capsule.
[2018-08-26 13:27] VITALS: PULSE 70; O2SAT 99
[2018-08-26 13:54] VITALS: BP 174/102
[2018-08-26 14:12] VITALS: TEMP 98
--- NOTE | 2018-08-26 15:47 | C.PDOC ---
History Of Present Illness 48 y/o female,w/PMhx of HTN, presents to the ER complaining of headache which has been present for the past few days. Patient states that she is supposed to be taking multiple medications but she ran out of the medications several days ago. Patient is also complaining of chronic back pain. Denies having fever,chills, dizziness,CP, SOB, nausea, vomiting, and abdominal pain. Time Seen by Provider: 08/26/18 10:44 Chief Complaint (Nursing): Headache History Per: Patient History/Exam Limitations: no limitations Onset/Duration Of Symptoms: Days Current Symptoms Are (Timing): Still Present Severity: Moderate Past Medical History Reviewed: Historical Data, Nursing Documentation, Vital Signs Vital Signs: Last Vital Signs Temp 98.0 F 08/26/18 14:12 Pulse 70 08/26/18 13:27 Resp 24 08/26/18 10:57 BP 174/102 H 08/26/18 13:46 Pulse Ox 99 08/26/18 13:27 - Medical History PMH: Anxiety, Arthritis, Asthma, Back Problems (sciatica), Depression, Fractures (left foot fracture 2007), Gastritis, HTN, Hypercholesterolemia, Migraine, Pneumonia, Rheumatoid Arthritis Denies: Anemia, Diabetes, Hepatitis, Chronic Kidney Disease, Sexually Transmitted Disease Surgical History: Denies: Appendectomy, Cholecystectomy - [facility] Procedures ANESTH INJECT-SPIN CANAL (06/13/14) ESOPHAGOGASTRODUODENOSCOPY [EGD] W/CLOSED BIOPSY (01/11/15) INJECT STEROID (11/16/14) OTH REMOVE BOTH OVARIES/TUBES (11/06/12) OTHER AND UNSPECIFIED TOTAL ABDOMINAL HYSTERECTOMY (11/06/12) PACKED CELL TRANSFUSION (11/06/12) PLATELET TRANSFUSION (11/06/12) SPINAL CANAL INJECT NEC (11/16/14) Family History: States: No Known Family Hx - Social History Hx Tobacco Use: Yes Hx Alcohol Use: No (socially) Hx Substance Use: Yes (marijuana) - Immunization History Hx Tetanus Toxoid Vaccination: No Hx Influenza Vaccination: No Hx Pneumococcal Vaccination: Yes Review Of Systems Except As Marked, All Systems Reviewed And Found Negative. Constitutional: Negative for: Fever, Chills Cardiovascular: Negative for: Chest Pain Respiratory: Negative for: Shortness of Breath Gastrointestinal: Negative for: Nausea, Vomiting, Abdominal Pain Musculoskeletal: Positive for: Back Pain Neurological: Positive for: Headache. Negative for: Dizziness Physical Exam - Physical Exam Appears: Non-toxic, No Acute Distress Skin: Normal Color, Warm, Dry Head: Atraumatic, Normacephalic Eye(s): bilateral: Normal Inspection, PERRL, EOMI Nose: Normal Oral Mucosa: Moist Neck: Supple Chest: Symmetrical Cardiovascular: Rhythm Regular Respiratory: Normal Breath Sounds, No Rales, No Rhonchi, No Wheezing Gastrointestinal/Abdominal: Normal Exam, Soft, No Tenderness, No Guarding, No Rebound Back: No Vertebral Tenderness Neurological/Psych: Oriented x3, Normal Speech ED Course And Treatment - Laboratory Results Result Diagrams: 08/26/18 11:28 08/26/18 11:28 Lab Results: Troponin I < 0.0120 ng/mL (0.00-0.120) 08/26/18 11:28 Total Bilirubin 0.6 mg/dL (0.2-1.3) 08/26/18 11:28 AST 39 U/L (14-36) H D 08/26/18 11:28 ALT 27 U/L (9-52) 08/26/18 11:28 Alkaline Phosphatase 85 U/L (38-126) 08/26/18 11:28 Total Protein 7.5 g/dL (6.3-8.3) 08/26/18 11:28 Albumin 4.2 g/dL (3.5-5.0) 08/26/18 11:28 Globulin 3.2 gm/dL (2.2-3.9) 08/26/18 11:28 Albumin/Globulin Ratio 1.3 (1.0-2.1) 08/26/18 11:28 ECG: Interpreted By Me, Viewed By Me ECG Rhythm: Sinus Rhythm Interpretation Of ECG: NSR with normal axises and normal intervals Rate From EC O2 Sat by Pulse Oximetry: 99 (RA) Pulse Ox Interpretation: Normal Medical Decision Making Medical Decision Making: Systolic blood pressure decreased by 50 points. Patient has been prescribed RX for 1 week of bp medications. Patient has been discharged and instructed to follow up in office. Disposition - Disposition Referrals: [facility] [Outside] [facility] [Outside] Disposition: HOME/ ROUTINE Disposition Time: 14:00 Condition: IMPROVED Additional Instructions: ALICIA SAUNDERS, thank you for letting us take care of you today. The emergency medical care you received today was directed at your acute symptoms. If you were prescribed any medication, please fill it and take as directed. It may take several days for your symptoms to resolve. Return to the Emergency Department if your symptoms worsen, do not improve, or if you have any other problems. Please contact your doctor or call one of the physicians/clinics you have been referred to that are listed on the Patient Visit Information form that is included in your discharge packet. Bring any paperwork you were given at discharge with you along with any medications you are taking to your follow up visit. Our treatment cannot replace ongoing medical care by a primary care provider outside of the emergency department. Thank you for allowing the [facility] team to be part of your care today. You must follow up in the clinic in 2-3 days for re-evaluation and further m anagement. Prescriptions: amLODIPine [Norvasc] 10 mg PO DAILY #7 tab hydrALAZINE [Apresoline] 50 mg PO TID #21 tab hydroCHLOROthiazide [Microzide] 50 mg PO DAILY #7 tab Propranolol HCl 10 mg PO TID #21 tablet Instructions: High Blood Pressure in Adults Forms: [employer] (Malaysian) - Clinical Impression Clinical Impression: Noncompliance with medication regimen, Severe uncontrolled hypertension - Scribe Statement The provider has reviewed the documentation as recorded by the Trina Luo Provider Attestation: All medical record entries made by the Trina were at my direction and personally dictated by me. I have reviewed the chart and agree that the record accurately reflects my personal performance of the history, physical exam, medical decision making, and the department course for this patient. I have also personally directed, reviewed, and agree with the discharge instructions and disposition.
--- NOTE | 2018-08-28 16:30 | CARD ---
APPROVED REPORT Date of service: 08/26/2018 EKG Measurement Heart [id number] <Conclusion> Normal sinus rhythm Nonspecific T wave abnormality Prolonged QT Abnormal ECG
== END 2018-08-26 14:12 | disposition home or self-care (01) ==
LOC: C.ER 10:35
DX: I10 Essential (primary) hypertension (principal); Z91.14 Patient's other noncompliance with medication regimen